=== PATIENT | female | born 1975 ===

== ENCOUNTER → 2017-01-31 | Outpatient (CLI) | payer OTHER ==
--- NOTE | 2017-01-31 15:45 | RAD ---
Transabdominal and transvaginal pelvic ultrasound 01/31/2017 Indication: 41-year-old female with pelvic pain. Comparison study: None Discussion: Ultrasound evaluation of the pelvis was performed transabdominally and transvaginally. Static images were submitted to PACS. The uterus measures 9.5 x 4.2 x 6.0 cm. No focal uterine lesions are identified. Endometrial thickness is approximately 5 mm. Right ovary measures 3.9 x 2.2 x 2.3 cm. Left ovary measures 4.1 x 2.4 x 2.2 cm. Laterally ovaries is demonstrated on color Doppler imaging. Scant free fluid is seen in the pelvis adjacent to the right ovary. Although nonspecific, this is most commonly physiologic in a premenopausal patient. Limited visualization of the bladder is unremarkable. Impression: 1. No sonographic evidence of acute abnormality 2. Scant free fluid seen in the right pelvis, most commonly physiologic in a premenopausal patient
== END | disposition home or self-care (01) ==
LOC: US 13:12
PROVIDERS: ATTEND Obstetrics & Gynecology
DX: R10.2 Pelvic and perineal pain (principal)
CPT/HCPCS: 76830; 76856